=== PATIENT | female | born 1995 | race African-American/Black ===

== ENCOUNTER 2021-10-20 11:17 | Emergency (ER) | payer MEDICAID ==
[~2021-10-20] VITALS: Ht 157.5 cm; Wt 72.0 kg
[2021-10-20 11:28] VITALS: BP 93/63
[2021-10-20 15:02] LABS: CHLORIDE 109 mEq/L (98-107)
[2021-10-20 15:16] LABS: BASOPHILS % 0.1 % (0.0-2.0); EOSINOPHILS % 0.2 % (0.0-5.0); HEMATOCRIT. 33.1 % (36.0-48.0); HEMOGLOBIN. 11.3 g/dL (12.0-16.0); MEAN CORPUSCULAR HEMOGLOBIN 28.7 pg (28.0-32.0); MEAN CORPUSCULAR VOLUME 83.8 fL (81.0-99.0); MEAN PLATELET VOLUME 11.5 fl (7.4-10.4); MONOCYTES % 6.3 % (2.0-8.0); NEUTROPHILS % 78.4 % (40.0-76.0); PLATELET 141 x1000/uL (130-400); RED BLOOD CELL COUNT 3.95 mill/uL (4.2-5.4); RED CELL DISTRIBUTION WIDTH 12.8 % (11.6-14.6)
[2021-10-20 15:28] LABS: B-HCG QUANTITATIVE 163313 mIU/mL (<3)
== END 2021-10-20 17:20 | disposition home or self-care (01) ==
LOC: ER 12:09
DX: O26.891 Other specified pregnancy related conditions, first trimester (principal); R10.9 Unspecified abdominal pain; Z3A.12 12 weeks gestation of pregnancy
CPT/HCPCS: 36415; 76801; 76802; 80053; 81025; 84702; 85025; 86850; 86900; 99284